=== PATIENT | female | born 1945 | race Caucasian/White ===

== ENCOUNTER → 2020-06-19 13:54 | Outpatient (BNVA) | payer MEDICARE, SELFPAY | PROVIDERS: PCP Internal Medicine; Visit Provider Urology | DX: R31.29 Other microscopic hematuria (principal); N39.0 Urinary tract infection, site not specified | CPT/HCPCS: 81002; 99212 ==

== ENCOUNTER 2020-06-29 15:47 | Outpatient (REF) | payer MEDICARE, SELFPAY | END 2020-06-29 15:48 | disposition home or self-care (01) | LOC: HO.LNP 15:47 | PROVIDERS: Visit Provider Urology | DX: Z13.89 Encounter for screening for other disorder (principal) ==